=== PATIENT | male | born 1960 | race African-American/Black ===

== ENCOUNTER 2016-08-21 15:03 | Emergency (ER) | payer BC ==
[~2016-08-21] VITALS: Ht 182.9 cm; Wt 108.9 kg
[~2016-08-21 15:03] MED LIST: AMITRIPTYLINE 225 MG PO; ANTIVERT GENERI25 MG PO; CELEBREX 200MG200 MG PO; DOLOBID 500MG500 MG PO; EC NAPROSYN500 MG PO; FLEXERIL10 MG PO; MEDROL 4MG. DOSE4 MG PO; NOMEDS; NOMEDS XX; PEN-VK500 MG PO; TRAMADOL 50MG T50 MG PO
--- NOTE | 2016-08-21 15:41 | Emergency Room Report ---
History of Present Illness Time Seen by [id number] Presenting Problem in Triage Pt arrived:Walked Presenting Problem:C/O INTERMITTENT "SHARP" PAIN TO TOP OF HEAD. 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 N Clinical Suspician of Infection? N Mental Status: 1 - Regular (Normal Baseline) Sepsis Risk:Low Sepsis Risk Have you (or family members/close friends) recently traveled outside the [place]? N If Yes, where/when: Have you had exposure to infectious disease within the past month? TB? Other? Specify: Source patient, RN notes reviewed, family, RN/MD Exam Limitations no limitations Comment This is a 55-year-old Afro-Polish gentleman presented emergency room for evaluation of a headache that he has experienced approximately 3 days ago, localized in the LEFT parietal area, which lasted approximately 10 minutes, since resolved. Patient is completely a symptomatic at this time, denies any headache, blurred vision, neck pain, neurological deficits, etc. She does not have a history of previous headaches in the past. He describes the headache as squeezing, 5/10, without any associated symptoms. ALLERGIES Coded Allergies: NO KNOWN ALLERGIES (08/21/16) Home Medications Reported Medications No Known Home Medications History Medical History General Angina: No [place]: No Hypertension? No Hyperlipidemia? No CHF? No COPD? No Asthma? No CVA? No Seizures? No Diabetes? No GB Disease: No MRSA? No TB? No Cancer? No Immunization Hx DT/Tetanus Unknown Surgical Hx Previous Surgery?Y RIGHT THUMB ESOPHAGUS REPAIR Social History Smoking Hx Smoker: Former Smoker Tobacco: No Alcohol Alcohol: Yes Review of Systems All Other Systems Reviewed and Negative Psychiatric/Neurological headache Physical Exam Vital Signs Vital Signs Date Time Temp Pulse Resp B/P Pulse O2 O2 Flow FiO2 Ox Delivery Rate 08/21 1636 98.0 70 18 123/79 100 / 1515 97.9 79 18 126/75 95 05/ 1506 97.9 79 18 126/75 95 General Appearance normal appearance, WD/WN Eye Exam - bilateral eye normal exam, bilateral eye PERRL, bilateral eye EOMI Ear, Nose, Throat hearing grossly normal, normal ENT inspection Neck normal inspection, non-tender, supple, full range of motion Respiratory Status Yes: trachea midline, chest symmetrical, non tender chest. No: respiratory distress. Lung Sounds bilateral: normal breath sounds, lungs clear. 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 No Comment Patient appears medically stable, in no acute distress. Advised patient to follow-up with his PCP within 2 days if any recurrent symptoms. He does not appear to have any emergent need for additional workup at this time. Departure Departure Time of Disposition 1628 Disposition DC Home or Self Care(routine) Clinical Impression Primary Impression: Tension headache Condition STABLE Referrals Peterson Vaughan MD (Family): 2 Days-Call Office If recurrent symptoms Patient Instructions Tension Headache Additional Instructions Please follow-up with Dr. Yaya Vaughan if any further, recurrent symptoms. Discharge Counseling Counseled pt/family regarding diagnosis, test results, medications/RX, home care, follow up needs Comment Please follow-up with Dr. Yaya Vaughan if any further, recurrent symptoms. Prescriptions Current Visit Scripts No Known Home Medications ED Critical Care Critical Care No at [id number]
--- NOTE | 2016-08-21 15:41 | Emergency Room Report ---
History of Present Illness Time Seen by [id number] Presenting Problem in Triage Pt arrived:Walked Presenting Problem:C/O INTERMITTENT "SHARP" PAIN TO TOP OF HEAD. 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 N Clinical Suspician of Infection? N Mental Status: 1 - Regular (Normal Baseline) Sepsis Risk:Low Sepsis Risk Have you (or family members/close friends) recently traveled outside the [place]? N If Yes, where/when: Have you had exposure to infectious disease within the past month? TB? Other? Specify: Source patient, RN notes reviewed, family, RN/MD Exam Limitations no limitations Comment This is a 55-year-old Afro-Brazilian gentleman presented emergency room for evaluation of a headache that he has experienced approximately 3 days ago, localized in the LEFT parietal area, which lasted approximately 10 minutes, since resolved. Patient is completely a symptomatic at this time, denies any headache, blurred vision, neck pain, neurological deficits, etc. She does not have a history of previous headaches in the past. He describes the headache as squeezing, 5/10, without any associated symptoms. ALLERGIES Coded Allergies: NO KNOWN ALLERGIES (08/21/16) Home Medications Reported Medications No Known Home Medications History Medical History General Angina: No [place]: No Hypertension? No Hyperlipidemia? No CHF? No COPD? No Asthma? No CVA? No Seizures? No Diabetes? No GB Disease: No MRSA? No TB? No Cancer? No Immunization Hx DT/Tetanus Unknown Surgical Hx Previous Surgery?Y RIGHT THUMB ESOPHAGUS REPAIR Social History Smoking Hx Smoker: Former Smoker Tobacco: No Alcohol Alcohol: Yes Review of Systems All Other Systems Reviewed and Negative Psychiatric/Neurological headache Physical Exam Vital Signs Vital Signs Date Time Temp Pulse Resp B/P Pulse O2 O2 Flow FiO2 Ox Delivery Rate 08/21 1636 98.0 70 18 123/79 100 / 1515 97.9 79 18 126/75 95 05/ 1506 97.9 79 18 126/75 95 General Appearance normal appearance, WD/WN Eye Exam - bilateral eye normal exam, bilateral eye PERRL, bilateral eye EOMI Ear, Nose, Throat hearing grossly normal, normal ENT inspection Neck normal inspection, non-tender, supple, full range of motion Respiratory Status Yes: trachea midline, chest symmetrical, non tender chest. No: respiratory distress. Lung Sounds bilateral: normal breath sounds, lungs clear. 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 No Comment Patient appears medically stable, in no acute distress. Advised patient to follow-up with his PCP within 2 days if any recurrent symptoms. He does not appear to have any emergent need for additional workup at this time. Departure Departure Time of Disposition 1628 Disposition DC Home or Self Care(routine) Clinical Impression Primary Impression: Tension headache Condition STABLE Referrals Peterson Vaughan MD (Family): 2 Days-Call Office If recurrent symptoms Patient Instructions Tension Headache Additional Instructions Please follow-up with Dr. Yaya Vaughan if any further, recurrent symptoms. Discharge Counseling Counseled pt/family regarding diagnosis, test results, medications/RX, home care, follow up needs Comment Please follow-up with Dr. Yaya Vaughan if any further, recurrent symptoms. Prescriptions Current Visit Scripts No Known Home Medications ED Critical Care Critical Care No at [id number]
--- OUTSIDE RECORDS SUMMARY | 2016-08-21 16:33 | External Medical Summary Rpt ---
Author Author , Organization [employer] Address Unknown Phone Unavailable Care Team Providers Care Drill Sergeant Name Role Phone Obie Best MD, Unavailable Unavailable Obie Best MD Purpose Continuity of Care Document - 11-07-2012 through 2016 Problems Code Diagnosis DOS Provider Status 796.2 796.2 ELEV 11-07-2012 [facility] W/O [facility] 992.5 992.5 HEAT 11-07-2012 [facility] Allergies, Adverse Reactions, Alerts Type Allergy to substance Adverse Reaction to Substance Substance Reaction Severity NO KNOWN ALLERGIES Unknown Unknown Vital Signs 11-07-2012 13:28 Name Value Interpretat Reference Comment ion Range Body 98 [degF] Temperature BP 84 mm[Hg] Diastolic BP Systolic 136 mm[Hg] Heart 76 /min Rate/Pulse O2% 100 % Respiratory 20 /min Rate 11-07-2012 13:05 Name Value Interpretat Reference Comment ion Range BP 81 mm[Hg] Diastolic BP Systolic 139 mm[Hg] Heart 87 /min Rate/Pulse O2% 99 % Respiratory 20 /min Rate Encounters Encounter Start End Date Code Location Performer Type Date Emergency JERO Best MD (ER) 3 13:36 3 13:40 [facility]
--- OUTSIDE RECORDS SUMMARY | 2016-08-21 16:33 | External Medical Summary Rpt ---
Author Author BRI[employer] Rios, [employer] Organization [employer] Address Unknown Phone Unavailable
--- OUTSIDE RECORDS SUMMARY | 2016-08-21 16:33 | External Medical Summary Rpt ---
Author Author [employer] Organization [employer] Address Unknown Phone Unavailable Purpose Continuity of Care Document - through 2016
--- OUTSIDE RECORDS SUMMARY | 2016-08-21 16:33 | External Medical Summary Rpt ---
Demographics Preferred Language Anguillan Marital Status Unknown Restoration Affiliation Unknown Race Unknown Ethnic Group Unknown Author Author , Organization [employer] Address Unknown Phone Unavailable Purpose Continuity of Care Document - through 2016 Immunization No patient found.
--- OUTSIDE RECORDS SUMMARY | 2016-08-21 16:33 | External Medical Summary Rpt ---
Demographics Preferred Language Senegalese Marital Status Unknown Presybeterian Affiliation Unknown Race Unknown Ethnic Group Unknown Author Author , Organization [employer] Address Unknown Phone Unavailable Purpose Continuity of Care Document - through 2016 Immunization No patient found.
--- OUTSIDE RECORDS SUMMARY | 2016-08-21 16:33 | External Medical Summary Rpt ---
Author Author , Organization [employer] Address Unknown Phone Unavailable Care Team Providers Care Assistant Guest Services Manager Name Role Phone Obie Best MD, Unavailable Unavailable Obie Best MD Purpose Continuity of Care Document - 11-07-2012 through 2016 Problems Code Diagnosis DOS Provider Status 796.2 796.2 ELEV 11-07-2012 [facility] W/O [facility] 992.5 992.5 HEAT 11-07-2012 [facility] Allergies, Adverse Reactions, Alerts Type Allergy to [...] Best MD (ER) 3 13:36 3 13:40 [facility]
[2016-08-21 16:36] VITALS: BP 123/79
--- OUTSIDE RECORDS SUMMARY | 2016-08-21 16:56 | External Medical Summary Rpt ---
Author Author , Organization [employer] Address Unknown Phone Unavailable Care Team Providers Care Registered Dental Assistant Name Role Phone Obie Best MD, Unavailable Unavailable Obie Best MD Purpose Continuity of Care Document - 11-07-2012 through 2016 Problems Code Diagnosis DOS Provider Status 796.2 796.2 ELEV 11-07-2012 [facility] W/O [facility] 992.5 992.5 HEAT 11-07-2012 [facility] Allergies, Adverse Reactions, Alerts Type Allergy [...] Best MD (ER) 3 13:36 3 13:40 [facility]
--- OUTSIDE RECORDS SUMMARY | 2016-08-21 16:56 | External Medical Summary Rpt ---
Author Author , Organization [employer] Address Unknown Phone Unavailable Care Team Providers Care Rural Health Consultant Name Role Phone Obie Best MD, Unavailable Unavailable Obie Best MD Purpose Continuity of Care Document - 11-07-2012 through 2016 Problems Code Diagnosis DOS Provider Status 796.2 796.2 ELEV 11-07-2012 [place] [facility] W/O [facility] 992.5 992.5 HEAT 11-07-2012 [facility] Allergies, Adverse Reactions, Alerts Type Allergy to [...] Best MD (ER) 3 13:36 3 13:40 [facility]
--- OUTSIDE RECORDS SUMMARY | 2016-08-21 16:56 | External Medical Summary Rpt ---
Demographics Preferred Language Armenian Marital Status Unknown Tenriism Affiliation Unknown Race Unknown Ethnic Group Unknown Author Author , Organization [employer] Address Unknown Phone Unavailable Purpose Continuity of Care Document - through 2016 Immunization No patient found.
--- OUTSIDE RECORDS SUMMARY | 2016-08-21 16:56 | External Medical Summary Rpt ---
Demographics Preferred Language Tristanian Marital Status Unknown Quaker Affiliation Unknown Race Unknown Ethnic Group Unknown Author Author , Organization [employer] Address Unknown Phone Unavailable Purpose Continuity of Care Document - through 2016 Immunization No patient found.
== END 2016-08-21 16:37 | disposition home or self-care (01) ==
LOC: ER 15:03
DX: G44.209 Tension-type headache, unspecified, not intractable (principal)

== ENCOUNTER → 2016-12-24 | Outpatient (CLI) | payer BC ==
[~2016-12-24] MED LIST changes: +ALDACTONE25 MG NG
--- NOTE | 2016-12-24 15:48 | CARDIOVASCULAR REPORT ---
"Venous Exam Indications: 729.5 Pain in limb. 782.3 Edema. IMPRESSIONS 1. There is no evidence of significant Reflux. 2. No evidence of deep or superficial vein thrombosis involving the left lower extremity 3. No evidence of deep or superficial vein thrombosis involving the right lower extremity Complete lower extremity venous duplex evaluation. Doppler flow study including spectral analysis, color and maciel scale imaging. Location: Vascular laboratory. Patient status: Outpatient. Incidental findings: A Romeo's cyst is noted incidentally on the right. A Romeo's cyst is noted incidentally on the left. Tables: Venous flow and imaging: + +-------+ + |Location |Overall|Flow properties | + +-------+ + |Right common femoral |Patent |Normal phasicity; spontaneous; | | | |normal augmentation; compressible| + +-------+ + |Right saphenofemoral junction|Patent |Compressible | + +-------+ + |Right profunda femoral |Patent |Compressible | + +-------+ + |Right femoral |Patent |Normal phasicity; spontaneous; | | | |normal augmentation; | | | |compressible; no reflux | + +-------+ + |Right greater saphenous |Patent |Normal phasicity; spontaneous; | | | |normal augmentation; compressible| + +-------+ + |Right popliteal |Patent |Normal phasicity; spontaneous; | | | |normal augmentation; compressible| + +-------+ + |Right posterior tibial |Patent |Compressible | + +-------+ + |Right peroneal |Patent |Compressible | + +-------+ + |Right gastrocnemius |Patent |Compressible | + +-------+ + |Right soleal |Patent |Compressible | + +-------+ + |Left common femoral |Patent |Normal phasicity; spontaneous; | | | |normal augmentation; compressible| + +-------+ + |Left saphenofemoral junction |Patent |Compressible | + +-------+ + |Left profunda femoral |Patent |Compressible | + +-------+ + |Left femoral |Patent |Normal phasicity; spontaneous; | | | |normal augmentation; compressible| + +-------+ + |Left greater saphenous |Patent |Normal phasicity; spontaneous; | | | |normal augmentation; compressible| + +-------+ + |Left popliteal |Patent |Normal phasicity; spontaneous; | | | |normal augmentation; compressible| + +-------+ + |Left posterior tibial |Patent |Compressible | + +-------+ + |Left peroneal |Patent |Compressible | + +-------+ + |Left gastrocnemius |Patent |Compressible | + +-------+ + |Left soleal |Patent |Compressible | + +-------+ + (Report amended ) Electronically signed by: Jim Buck [id number]"
== END ==
LOC: RT 15:08
DX: M79.604 Pain in right leg (principal); M79.605 Pain in left leg